=== PATIENT | male | born 1995 | race Two or more races ===

== ENCOUNTER 2017-01-12 18:34 | Emergency (ER) | payer OTHER ==
[~2017-01-12 18:34] MED LIST: ALBUTEROL17 GM INH; PREDNISONE PO
== END 2017-01-12 20:10 | disposition home or self-care (01) ==
LOC: CFTX 18:34 → CED 18:34 → CFTX 19:20
DX: J45.909 Unspecified asthma, uncomplicated (principal); Z87.891 Personal history of nicotine dependence; Z79.899 Other long term (current) drug therapy
CPT/HCPCS: 94640; 99283